=== PATIENT | female | born 1985 | race Caucasian/White ===

== ENCOUNTER 2017-01-23 11:58 | Emergency (ER) | payer OTHER ==
[~2017-01-23] VITALS: Ht 160 cm; Wt 90.9 kg
[2017-01-23] MEDS: KETOROLAC TROMETHAMINE 30 MG/ML VIAL IM ONE ×2 (13:47→13:51)
[2017-01-23 15:16] VITALS: BP 111/68
== END 2017-01-23 15:18 | disposition home or self-care (01) ==
LOC: EMS 11:58
DX: J40 Bronchitis, not specified as acute or chronic (principal); R21 Rash and other nonspecific skin eruption; J45.909 Unspecified asthma, uncomplicated
CPT/HCPCS: 71020; 99284; J1885

== ENCOUNTER 2019-05-02 12:19 | Emergency (ER) | payer OTHER ==
[~2019-05-02] VITALS: Ht 157.5 cm; Wt 75.0 kg
[2019-05-02] MEDS ORDERED: POVIDONE-IODINE 10% 15 ML SOLUTION UD TP ONE (14:00)
[2019-05-02] MEDS ORDERED: LIDOCAINE 1%/EPI 1:200,000/PF 30 ML VIAL INJ ONE (14:00)
[2019-05-02] MEDS ORDERED: LIDOCAINE 1%/EPI 1:200,000/PF 10 ML VIAL INJ ONE (14:00)
[2019-05-02 15:17] VITALS: BP 126/68
== END 2019-05-02 15:23 | disposition home or self-care (01) ==
LOC: EMS 12:22
DX: L02.212 Cutaneous abscess of back [any part, except buttock and flank] (principal); J45.909 Unspecified asthma, uncomplicated
CPT/HCPCS: 10060; 99283; J3490

== ENCOUNTER 2019-05-04 10:33 | Emergency (ER) | payer OTHER ==
[~2019-05-04] VITALS: Ht 157.5 cm; Wt 77.3 kg
[2019-05-04 10:42] VITALS: BP 100/43
== END 2019-05-04 11:19 | disposition home or self-care (01) ==
LOC: EMS 10:36
DX: Z48.00 Encounter for change or removal of nonsurgical wound dressing (principal); J45.909 Unspecified asthma, uncomplicated